=== PATIENT | female | born 1980 | race Caucasian/White ===

== ENCOUNTER 2019-01-01 08:23 | Emergency (ER) | payer BC ==
--- OUTSIDE RECORDS SUMMARY | 2019-01-01 08:30 | XMS REPORT | Continuity of Care Document ---
:1980 External Reference #:[id number] Author Name Karen Pelaez FNP Address [address] [facility] [place] [address] Care Team Providers Name Role Phone Karen Pelaez NP Care Team Information Supply Person Unavailable Karen Pelaez NP Primary Care Physician Unavailable Payers Type Date Identification Numbers Payment Provider Subscriber Policy Number: [id number] Karl Veronica Florentino Group Name: rishabh corrales [address] [address] PayID: [id number] [place] [address] Advance Directives Description No Information Available Problems Date Description Provider Status Onset: 04/15/2015 Generalized anxiety disorder Karen Pelaez FNP Active Onset: 04/08/2014 Female stress incontinence Karen Pelaez FNP Active Onset: 07/25/2013 Headache Kathy De La Cruz FNP Active Onset: 04/15/2015 Tobacco user Karen Pelaez FNP Active Onset: 04/26/2017 Cyst of breast Karen Pelaez FNP Active Note: Triage: 12/08/16 - breast u/s med refill Onset: 12/19/2017 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 Document: 11/06/17 - Consult Ophthalmology Onset: 07/25/2013 Anxiety state Kathy De La Cruz FNP Resolved Resolved: 03/27/2017 Family History Date Family Member(s) Problem(s) Comments Father Diabetes Father due to Suicide () Father paranoid schizophrenia Mother Hypertension Mother Heart Disease + H/O smoking Paternal Grandfather due to [place] () Paternal Grandmother due to Natural Causes () Maternal Grandfather due to complications of () - + smoker AAA surgery Maternal Grandmother Heart Disease Maternal Grandmother due to Heart Disease () - H/O smoking and triple bypass Social History Type Date Description Comments Sex Unknown Lives With Alone Diet Patient follows no dietary restrictions ETOH Use Drinks Alcoholic Beverages Occasionally Tobacco Use Reviewed: 12/18/18 Light tobacco smoker (10 or APPROX 1/2 PPD - fewer cigarettes/day) started smoking 22. Smoking Status Reviewed: 12/18/18 Light tobacco smoker (10 or APPROX 1/2 PPD - fewer cigarettes/day) started smoking 22. 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 Alprazolam 07/25/ Active Tablets 0.25mg 30tabs one by Benigno 2012 mouth three Jenniferle times a day igh, SEED CLEANING MANAGER as needed MDD#3 Reference #: [id number] Propranolol 07/05/ Hx Tablets 40mg 45tabs 1 tab by Clune, HCL 2016 - mouth twice Jenniferle 12/18/ a day x 1 igh, SEED CLEANING MANAGER 2018 week then decrease to 1 tab once daily at hs *in place of 60 mg ER dose* Propranolol 06/04/ Hx Caps ER 60mg 30caps one PO qd - Clune, HCL ER 2016 - 24HR in place of Jenniferle 10/06/ 80 mg dose, igh, SEED CLEANING MANAGER 2016 will decrease to 40 mg at next refill 06/2017 Ferrous 10/05/ Hx Tablets 324(65Fe) 30tabs take one Alysha Muñoz 2013 - DR mg tablet by Meghna 04/15/ mouth once MD 2014 a day Propranolol 09/23/ Hx Caps ER 80mg 30caps One Cap By BLAYNE Pelaez ER 2014 - 24HR Mouth Once Jenniferle A Day igh, SE[employer] 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 2016 Naproxen / Hx Tablets 500mg PO bid Unknown 0000 - *scleritis, left eye 2019 Immunizations CPT Code Status Date Vaccine Lot # [id number] Given 11/06/2016 Pneumococcal Conjugate Vaccine 13 Valent For [id number] Intramuscular Use 33190 Given 11/06/2016 Influenza Virus Vaccine Split Virus Use For [id number] Individual 3Yr Older 36535 Given 09/23/2014 flu vaccination 42057 Given 07/09/2014 Tdap injection Vital Signs Date Vital Result Comment 12/18/2018 7:41am BP Systolic Sitting Left Arm 112 mmHg BP Diastolic Sitting Left Arm 74 mmHg Body Temperature 98.6 F Heart Rate 96 /min Height 61.5 inches 5'1.50" Weight 139.25 lb BMI (Body Mass Index) 25.9 kg/m2 BSA (Body Surface Area) 1.63 m2 [place] body weight in kilograms 49 kg O2 % BldC Oximetry 96 % 06/04/2017 9:35am BP Systolic 118 mmHg BP Diastolic 82 mmHg Height 61 inches 5'1" Weight 133.00 lb BMI (Body Mass Index) 25.1 kg/m2 BSA (Body Surface Area) 1.59 m2 [place] body weight in kilograms 48 kg 11/06/2016 8:41am BP Systolic Sitting Left Arm 142 mmHg BP Diastolic Sitting Left Arm 80 mmHg Body Temperature 99.0 F Heart Rate 92 /min Respiratory Rate 20 /min Height 61 inches 5'1" Weight 138.50 lb BMI (Body Mass Index) 26.2 kg/m2 BSA (Body Surface Area) 1.62 m2 03/07/2016 11:09am BP Systolic Sitting Left Arm 114 mmHg BP Diastolic Sitting Left Arm 72 mmHg Height 61 inches 5'1" Weight 144.00 lb BMI (Body Mass Index) 27.2 kg/m2 BSA (Body Surface Area) 1.64 m2 Last Menstrual Period [id number] 04/15/2015 9:34am BP Systolic Sitting Left Arm 114 mmHg BP Diastolic Sitting Left Arm 76 mmHg Height 61 inches 5'1" Weight 149.00 lb BMI (Body Mass Index) 28.2 kg/m2 BSA (Body Surface Area) 1.67 m2 Last Menstrual Period [id number] 10/15/2014 9:56am BP Systolic 118 mmHg BP Diastolic 72 mmHg Weight 145.00 lb 09/23/2014 1:15pm BP Systolic 114 mmHg BP Diastolic 76 mmHg Heart Rate 80 /min Respiratory Rate 18 /min Weight 147.00 lb 07/09/2014 9:07am BP Systolic 120 mmHg BP Diastolic 80 mmHg Heart Rate 72 /min Height 61.6 inches 5'1.60" Weight 142.00 lb 04/08/2014 9:29am BP Systolic 114 mmHg BP Diastolic 72 mmHg Height 61.6 inches 5'1.60" Weight 136.00 lb 12/30/2013 4:09pm BP Systolic 130 mmHg BP Diastolic 80 mmHg Heart Rate 72 /min Height 62 inches 5'2" Weight 138.00 lb 11/13/2013 9:39am BP Systolic 130 mmHg BP Diastolic 84 mmHg Heart Rate 80 /min Height 62 inches 5'2" Weight 137.00 lb 10/13/2013 10:22am BP Systolic 124 mmHg BP Diastolic 80 mmHg Heart Rate 78 /min Height 62 inches 5'2" Weight 135.00 lb 07/25/2013 9:23am BP Systolic 92 mmHg BP Diastolic 62 mmHg Height 62 inches 5'2" Weight 136.00 lb Results Test Date Facility Test Result H/L Range Note Urine Dipstick 12/18/2018 [facility] Ua Color Yellow Yellow Ua Clarity clear Clear Ua Leuko negative Negative Ua Nitrite negative Negative Ua Urobilinogen 0.2 0.2 - 1.0 E.U./dL Ua Protein negative Negative Ua PH 6.0 Low 6.5-7.5 Ua Blood negative Negative Ua Specific [place] 1.020 1.010-1.030 Ua Ketones negative Negative Ua Bilirubin negative Negative Ua Glucose negative Negative Laboratory test 06/11/2017 [facility] TSH (Thyroid 1.94 N 0.34-5.60 finding [phone] Stimulating mcIU/mL Horm) Free T4 0.80 ng/dL N 0.61-1.12 Rheumatoid Factor <15 IU/mL N <15 1 Comprehensive Metabolic 04/15/2015 [facility] Glucose 85 mg/dL 74-106 2 Panel [address] [place] [address] [phone] BUN 10 mg/dL 7-18 Creatinine 0.7 mg/dL 0.6-1.3 Glom Filtration Rate, Estimate >60 mL/min >60 If >60 mL/min >60 3 BUN/Creat 14.2 ratio Sodium 137 mmol/L 136-145 Potassium 4.4 mmol/L 3.5-5.1 Chloride 104 mmol/L 98-107 Carbon Dioxide 27 mmol/L 21-32 Anion Gap 6 mEq/L Low 8-16 Calcium 8.9 mg/dL 8.5-10.1 Total Protein 7.6 g/dL 6.4-8.2 Albumin 3.9 g/dL 3.4-5.0 Globulin 3.7 g/dL 1.9-4.3 Alb/Glob 1.1 ratio Bilirubin,Total 0.3 mg/dL 0.2-1.0 Sgot/Ast 15 U/L 15-37 SGPT/Alt 22 U/L 12-78 Alkaline Phosphatase 51 U/L 45-117 Laboratory test 04/15/2015 [facility] Thyroid Stim 1.23 uIU/mL 0.36-3.[address] [place] [place] [address] [phone] Free T4 0.96 ng/dL 0.76-1.46 Prolactin 6.2 ng/mL 4 Anti-Thyroid 04/15/2015 [facility] Antithyroglobulin 38.8 High 0.0-0.[address] Antibody IU/[place] [address] [phone] Thyroid Peroxidase Antibodies 16 IU/mL 0-34 6 Iron-Tibc-%Sat 09/23/2014 [facility] Import Serum Iron 20 g/dL Low 50-170 Total Iron Binding Capacity 429 g/dL 250-450 Transferrin %Saturation 5 % Low 12-57 CBC 09/23/2014 N2N/[facility] Import Hematocrit 35.2 % Low 36.0-46.1 Hemoglobin 11.2 gm/dL Low 11.6-15.8 Mean Cell Volume 82.4 fl 80.9-99.0 Mean Corpuscular HGB 26.2 pg 25.9-32.7 Mean Corpuscular HGB Conc 31.8 g/dL 30.8-34.3 Mean Platelet Volume 9.6 fL 8.9-12.4 Platelet Count 374 K/uL High 155-360 Red Blood Count 4.27 M/uL 3.90-5.40 Red Cell Distri Width %CV 14.4 % 11.7-14.4 White Blood Count 6.4 K/uL 3.1-10.7 Laboratory test 09/23/2014 N2N/[facility] Import Thyroid Stim 1.07 uIU/mL 0.36- 3.74 finding Hormone Affirm 04/08/2014 N2N/[facility]D Import Leti Negative 7 Gardnerella Positive Trichomonas Negative Laboratory test finding 04/08/2014 N2N/[facility] Import Cytology Pap See Note 8 1 Test Performed by: [address] [address] 2 has appt 04/26/15 to discuss 3 Note: Persistent reduction for 3 months or more in an eGFR <60 mL/min/1.73 m2 defines CKD. Patients with eGFR values >/=60 mL/min/1.73 m2 may also have CKD if evidence of persistent proteinuria is present. The original MDRD equation for estimated GFR is not valid for patients less than 18 years of age. Additional information may be found at www.kdoqi.org. 4 Non- ..... 2.2-30.3 ng/mL ......... 8.1-347.6 ng/mL Post-Menopausal .. 0.7-31.5 ng/mL 5 Low positive Thyroglobulin antibodies are seen in a portion of the asymptomatic populations. Antithyroglobulin antibodies measured by Elisabet Nazlini Methodology 6 Performed at: - [facility] [address] [id number] Director Of Bands: Radha Ames MD, Phone: [phone] [facility] [address] [place] [address], [address] [place] [address] AFFIRM VAGINOSIS / VAGINITIS REPORT Name: Veronica Florentino : 1980 (Age: 33) Sex: F Location: [facility] Med. Rec. # Date Collected: 04/08/2014 Billing #: [id number] Date Received: 04/08/2014 Physician(s): KAREN KIMBROUGH Source of Specimen: Vaginal Results: Leti species DNA Probe NEGATIVE Gardnerella vaginalis DNA Probe POSITIVE Trichomonas vaginalis DNA Probe NEGATIVE Reported: 04/09/2014 Electronic Signature devang PHILLIPS (ASCP) [facility] [employer] [facility] ICD-9 Codes: 616.10 8 Cytology Laboratory [facility] [address] [place] [address] CYTOLOGY REPORT Name: Veronica Florentino : 1980 (Age: 33) Sex: F Location: [facility] Med. Rec. # Date Collected: 04/08/2014 Billing #: [id number] Date Received: 2013 Physician(s): KAREN KIMBROUGH Source of Specimen: ENDOCERVICAL/ ECTOCERVICAL THIN PREP Clinical Information: Date of Last Menstrual Period: 03/20/14 Menstrual History: Regular Interpretation: NEGATIVE FOR INTRAEPITHELIAL LESION OR MALIGNANCY. Specimen Adequacy: SATISFACTORY FOR EVALUATION. Additional Findings: ENDOCERVICAL/TRANSFORMATION ZONE PRESENT. ABUNDANT ACUTE INFLAMMATION. tfn Electronic Signature LILIANA Kimball (ASCP) Reported: 04/13/2014 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 (routine) w abnormal findings Z12.31 Encntr screen mammogram for malignant neoplasm of breast F41.1 Generalized anxiety disorder Z72.0 Tobacco use D48.5 Neoplasm of uncertain behavior of skin Z13.6 Encounter for screening for cardiovascular disorders Office Visit 06/04/2017 Family Pelaez, F41.1 Generalized 9:30a Medicine Gian Jones SEED CLEANING MANAGER anxiety disorder RD N63 Unspecified lump in breast G43.009 Migraine w/o aura, not intractable, w/o status migrainosus Office Visit 03/07/2016 [facility] Pelaez R10.31 Right lower 10:45a [facility] [place] KAYLAN Jones quadrant pain RD Office Visit 06/21/2015 [facility] Benigno, 626.2 Menstruation 9:30a [facility] [place] KAYLAN Jones Excessive Or RD Frequent V25.12 Encounter For Removal Of Intrauterine Contraceptive Device V25.11 Encounter For Insertion Of Intrauterine Contraceptive Device Office Visit 04/15/2015 [facility] Benigno, 300.02 Anxiety Disorder 9:30a [facility] KAYLAN Jones Generalized RD 783.1 Weight Gain Abnormal 305.1 Tobacco Use Disorder Plan of Treatment Future Appointment(s):12/17/2019 7:30 am - Karen Pelaez FNP at [facility] RD12/18/2018 - Karen Pelaez FNPZ01.411 Encounter for gynecological examination (general) (routine)New Labs:HIV Screen 4TH Gen Reflex , Ordered: 12/18/18Cytopathology Cervix/Vagina, Ordered: 12/18/18Chlmaydia/GC/ Trichomonas PCR, Ordered: 12/18/18Comments:H/O anxiety, but depression screen negativePap done, will call/send letter with resultsClinical breast exam done, no concerns today - mammogram to be scheduled Continue eye exams every 2 yearsContinue dental exams every 6 monthsEncourage increasing daily fruits and vegetables for 5 servings a dayEncourage daily exercise - striving for 20 minutes a day most days a week for heart jrflevE66.31 Encounter for screening mammogram for malignant neoplasm ofNew Xrays:Mammography, Screening Bilateral Mammogram, Ordered: 12/18/18F41.1 Generalized anxiety disorderComments:ORT score 4, UDT collected todaycontinue as needed Alprazolam useZ72.0 Tobacco useComments:No ready to discuss smoking cessationLung Cancer Screening recommendations:The U.S. Preventive Services Task Force recommends yearly lung cancer screening with LDCT for people who?? 1. Have a history of heavy smoking, and 2. Smoke now or have quit within the past 15 years, and 3. Are between 55 and 80years old.Heavy smoking means a smoking history of 30 pack years or more. A pack year is smoking an average of one pack of cigarettes per day for one yearYou do not need this now, but if you continue smoking will be a future aqnxokghkhgqblQ90.5 Neoplasm of uncertain behavior of skinComments:We discussed the ABCD's to consider when looking at skin lesions: Asymmetry, Border, Color and Diameter. As long as the lesion is symmetric, smooth bordered, has even coloration and the diameter is smaller than a pencil eraser - it can be monitored. If any changes occur such as enlarging larger than a pencil eraser, develops irregular borders or different colorations schedule an appointment for re-evaluationdue to changing nature of moles will get referralReferral: Anisha Barakat MD, KafzendrhecA58.6 Encounter for screening for cardiovascular disordersNew Labs:LDL Cholesterol Profile, Ordered: Comprehensive Metabolic Panel, Ordered: 12/18/18CBC W/Automated Diff, Ordered : 12/18/18
[2019-01-01 08:33] VITALS: BP 137/98
--- NOTE | 2019-01-01 09:42 | UC ---
Abdominal Pain Female HPI - HPI Summary HPI Summary: Patient is a 38-year-old female who states since last Sunday she's been having epigastric and right upper quadrant pain. Patient states pain is worse when she drinks coffee. Patient with nausea. Patient vomiting last week but none this week. No fevers or chills. Patient with decreased appetite and a day but states she is able to eat dinner. Patient does not relate paint any food other than coffee. Patient denies any back pain. No dysuria or hematuria. No vaginal discharge, itching or rashes. Patient has not taken any medication for pain. Patient states he missed work last Sunday and new. Patient states she worked half a day on Sunday. Patient states she went to work Sunday stay home Sunday and regular work today but pain was bad so she came here. Patient does report she has significant stress at work. Patient started to cry when she was talking about her job related stress. Patient states she just doesn't like feeling sick and she has anxiety which is is not getting better. Patient states she does take Zoloft for him anxiety and benzodiazepine as needed but has not taken it. Patient denies suicidal or homicidal ideology. Patient with history of similar pain. Patient's medications reviewed this visit. Patient states she is not . - History of Current Complaint Chief Complaint: UCAbdominalPain Stated Complaint: ABD PAIN Time Seen by Provider: 01/01/19 09:40 Hx Obtained From: Patient Hx Last Menstrual Period: 12/27/18 ?: No Onset/Duration: Gradual Onset Timing: Intermittent Episodes Lasting: Severity Initially: Moderate Severity Currently: Moderate Pain Intensity: 9 Allergies/Adverse Reactions: Allergies Allergy/AdvReac Type Severity Reaction Status Date / Time No Known Allergies Allergy Verified 01/01/19 08:34 Home Medications: Home Medications ALPRAZolam [Alprazolam] 0.25 mg PO DAILY 01/01/19 [History Confirmed 01/01/19] SUMAtriptan TAB* [Imitrex TAB*] 50 mg PO DAILY PRN 01/01/19 [History Confirmed 01/01/19] Sertraline* [Zoloft*] 50 mg PO DAILY 01/01/19 [History Confirmed 01/01/19] PMH/Surg Hx/FS Hx/Imm Hx Previously Healthy: Yes Psychological History: Anxiety, Depression - Surgical History Surgical History: None - Family History Known Family History: Positive: Non-Contributory - Social History Occupation: Employed Full-time Alcohol Use: Occasionally Substance Use Type: None Smoking Status (MU): Light Every Day Tobacco Smoker Review of Systems All Other Systems Reviewed And Are Negative: Yes Constitutional: Positive: Negative Skin: Positive: Negative Eyes: Positive: Negative ENT: Positive: Negative Respiratory: Positive: Negative Cardiovascular: Positive: Negative Gastrointestinal: Positive: Abdominal Pain, Nausea. Negative: Diarrhea Motor: Positive: Negative Neurovascular: Positive: Negative Physical Exam - Summary Physical Exam Summary: Vital Signs Reviewed: Yes A+Ox3, mild discomfort Eyes: Conjunctiva Clear, BEST. EOM intact and full ENT: Hearing grossly normal TM x 2 clear, mmoist, uvula midline, no exudate, no erythema Neck: Positive: Supple Respiratory: Positive: No respiratory distress, No accessory muscle use + CTA throughout no w/r Cardiovascular: RRR nl s1, s2 no m/r CBT <2 sec abd + TTP epigastric, RUQ No guarding, no rebound + BS - slightly decreased No CVA Musculoskeletal Exam: WATSON x 4 without difficulty Strength Intact, ROM Intact Neurological: Positive: Alert, + sensation throughout Psychological: Positive: Normal Response To Family Skin: Positive: no rash, no ecchymosis Triage Information Reviewed: Yes Vital Signs: Initial Vital Signs Temp 97.9 F 01/01/19 08:28 Pulse 85 01/01/19 08:28 Resp 17 01/01/19 08:28 BP 137/98 01/01/19 08:28 Pulse Ox 100 01/01/19 08:28 Abd Pain Female Course/Dx - Course Course Of Treatment: Patient presents with 6 days of persistent progressive epigastric right upper quadrant pain. Patient reports nausea and no vomiting. Patient states the symptoms are worse with coughing but not otherwise related to food. Patient states she's been feeling very anxious and has is stressed by the pain. Patient is not taking anything for pain. Patient states she had her while visit approximately 2 weeks ago and everything was fine. Patient does report that she has extensive stressors at work. On exam vital signs are stable. Patient does have significant epigastric right upper quadrant pain. Patient started to cry with exam states she has pain and she just feels overwhelmed that she sick. Patient is not suicidal or homicidal. Discussed with patient our diagnostic options and urgent care limitations. After discussion we'll send patient to emergency department for further evaluation. Patient comfortable and agreement with plan. - Differential Dx/Diagnosis Provider Diagnosis: Abdominal pain, diffuse Discharge - Sign-Out/Discharge Documenting (check all that apply): Patient Departure All imaging exams completed and their final reports reviewed: No Studies - Discharge Plan Condition: Stable Disposition: HOME-RECOMMEND TO ED Patient Education Materials: Acute Abdominal Pain (ED) Referrals: Zoie Pelaez NP [Primary Care Provider] - Additional Instructions: The doctor that evaluated you today thinks that you need additional testing that can be completed the emergency department. It is recommended that you go directly to emergency department for further evaluation. This evaluation may include blood work or imaging. This testing will be directed and decided by the provider that evaluate you at the emergency department. If pain becomes worse, you feel lightheaded, you have uncontrolled vomiting, or you have any other concerns while you are being driven to emergency department as recommended to pullover and contact 911. - Billing Disposition and Condition Condition: STABLE Disposition: Home-Recommend to ED
== END 2019-01-01 10:06 | disposition home health service (06) ==
LOC: UCEAST 08:23
DX: R10.84 Generalized abdominal pain (principal); F32.9 Major depressive disorder, single episode, unspecified; F41.9 Anxiety disorder, unspecified; F17.290 Nicotine dependence, other tobacco product, uncomplicated; R11.0 Nausea
CPT/HCPCS: 81003; 99212; G0463

== ENCOUNTER 2019-01-01 10:27 | Emergency (ER) | payer BC ==
[2019-01-01] MEDS ORDERED: Ondansetron INJ* 2 MG/ML VIAL IV ONE (10:58)
[2019-01-01] MEDS ORDERED: NS 0.9% 1000 ML** 1,000 ML IV ONE (10:58)
[2019-01-01] MEDS ORDERED: Morphine VIAL* 10 MG/ML 1 ML VIAL IV ONE (10:58)
--- NOTE | 2019-01-01 11:00 | ED ---
Abdominal Pain/Female - HPI Summary HPI Summary: This pt is a 38 y/o female presenting to [facility] c/o upper abdominal pain x1 week. Pt reports her abd pain has been constant and it is nonradiating. Currently she rates her pain 10/10 in severity. Additionally notes nausea and loose stools, having more frequency in bowel movements. Denies fever, chills, vomiting, diarrhea, chest pain, SOB. Her abd pain is aggravated after drinking coffee. PMHx: ovarian cysts. Pt notes her pain is different today than her ovarian cyst pain. No hx of ulcers. LMP: ended 1 week ago. - History of Current Complaint Chief Complaint: EDAbdPain Stated Complaint: ABD PAIN Time Seen by Provider: 01/01/19 10:47 Hx Obtained From: Patient Hx Last Menstrual Period: 12/27/18 Onset/Duration: Lasting Weeks - 1, Still Present Timing: Weeks - 1 Severity Currently: Severe Pain Intensity: 10 Pain Scale Used: 0-10 Numeric Location: Other - upper abdominal Radiates: No Aggravating Factor(s): Other: - drinking coffee Alleviating Factor(s): Nothing Associated Signs and Symptoms: Positive: Nausea. Negative: Fever, Chest Pain, Vomiting, Diarrhea Allergies/Adverse Reactions: Allergies Allergy/AdvReac Type Severity Reaction Status Date / Time No Known Allergies Allergy Verified 01/01/19 08:34 PMH/Surg Hx/FS Hx/Imm Hx Endocrine/Hematology History: Denies: Hx Diabetes Cardiovascular History: Denies: Hx Hypertension History: Reports: Other Problems/Disorders - ovarian cysts Infectious Disease History: No Infectious Disease History: Denies: Traveled Outside the [place] in Last 30 Days - Family History Known Family History: Positive: Hypertension, Diabetes - Social History Alcohol Use: Occasionally Substance Use Type: Reports: Marijuana Smoking Status (MU): Light Every Day Tobacco Smoker Review of Systems Negative: Fever Negative: Chest Pain Negative: Shortness Of Breath Gastrointestinal: Other - POS: loose stools Positive: Abdominal Pain, Nausea. Negative: Vomiting, Diarrhea All Other Systems Reviewed And Are Negative: Yes Physical Exam - Summary Physical Exam Summary: VITAL SIGNS: Reviewed. GENERAL: Patient is a well-developed and nourished female who is lying comfortable in the stretcher. Patient is not in any acute respiratory distress. HEAD AND FACE: Normocephalic and atraumatic. EYES: PERRLA, EOMI x 2, No injected conjunctiva. EARS: Hearing grossly intact. Ear canals and tympanic membranes are WNL. MOUTH: Oropharynx within normal limits. NECK: Supple, trachea is midline, no adenopathy, no JVD. CHEST: Symmetric, no tenderness at palpation LUNGS: Clear to auscultation bilaterally. No wheezing or crackles. CVS: RRR, S1 and S2 present, no murmurs or gallops appreciated. ABDOMEN: Soft, RUQ tenderness. A little bit of guarding. No signs of distention. Positive bowel sounds. No rebound and no masses palpated. No abdominal bruit or pulsations. EXTREMITIES: FROM in all major joints, no edema, no cyanosis or clubbing. NEURO: Alert and oriented x 3. No acute neurological deficits. Speech is normal. SKIN: Dry and warm Triage Information Reviewed: Yes Vital Signs On Initial Exam: Initial Vitals Temp Pulse Resp BP Pulse Ox 98.1 F 81 18 154/86 98 01/01/19 10:40 01/01/19 10:40 01/01/19 10:40 01/01/19 10:40 01/01/19 10:40 Vital Signs Reviewed: Yes Diagnostics - Vital Signs Vital Signs Temp Pulse Resp BP Pulse Ox 01/01/19 10:40 98.1 F 81 18 154/86 98 - Laboratory Result Diagrams: 01/01/19 11:09 01/01/19 11:09 Lab Statement: Any lab studies that have been ordered have been reviewed, and results considered in the medical decision making process. - CT Abdomen/Pelvis CT CT Interpretation Completed By: Radiologist Summary of CT Findings: IMPRESSION: IUD in place. No abnormal masses or fluid collections are noted. Normal appendix is visualized. There are right ovarian cysts noted. Dr. Salazar has reviewed this report. - Ultrasound No standard instances Ultrasound Interpretation Completed By: Radiologist Summary of Ultrasound Findings: Gallbladder US IMPRESSION: Negatie right upper quadrant ultrasound. Dr. Salazar has reviewed this report. Re-Evaluation - Re-Evaluation First Eval Re-Evaluation Time: 13:27 Change: Improved Comment: Pt is feeling better. I reviewed the lab and CT results with the pt. She will be discharged home. Abdominal Pain Fem Course/Dx - Course Course Of Treatment: Blood work without any significant abnormality. In the ED course the patient was given IV fluids, Zofran for nausea and morphine for pain. Right upper quadrant ultrasound impression: Negative exam. The patient continued to have abdominal pain therefore I ordered an abdominal pelvic CT. Impression: IUD in place, no abnormal masses or fluid collections are noted. Normal appendix is visualized. There are right ovarian cysts noted. I offered the patient a pelvic exam but the patient declined. After medications the patient reports that she is feeling better. I will give her a prescription for Prilosec and she is to follow up with the primary care physician. Patient is alert and oriented 3. I discussed all the findings and test results with the patient. Patient was instructed to return to the emergency room immediately if any of the symptoms return or worsens. Plan of care was discussed with the patient and understands and agrees. All questions were answered at patient satisfaction. There were no further complaints or concerns. Lung exam before discharge: CTA B/L. Good air exchange. No wheezing or crackles heard. CVS: S1 and S2 present. No murmurs appreciated. Patient is alert and oriented x 3. Patient is hemodynamically stable. Patient will be discharged home with follow up PCP in the next 2-3 days. - Diagnoses Differential Diagnosis: Positive: Appendicitis, Constipation, Diverticulitis, Gall Bladder Disease, Renal Colic, Urinary Tract Infection Provider Diagnoses: Upper abdominal pain Discharge - Sign-Out/Discharge Documenting (check all that apply): Patient Departure - Discharge home Patient Received Moderate/Deep Sedation with Procedure: No - Discharge Plan Condition: Stable Disposition: HOME Prescriptions: Omeprazole CAP (NF) [Prilosec CAP* 20 MG] 20 mg PO DAILY #14 cap. Patient Education Materials: Abdominal Pain (ED) Referrals: Zoie Pelaez NP [Primary Care Provider] - Additional Instructions: FOLLOW UP WITH YOUR PRIMARY CARE PROVIDER WITHIN ONE WEEK FOR HIGH BLOOD PRESSURE NOTED TODAY. RETURN TO THE ED FOR ANY NEW OR WORSENING SYMPTOMS. - Billing Disposition and Condition Condition: STABLE Disposition: Home - Attestation Statements Document Initiated by Eduardo: Yes Documenting Scribe: Lotus Mariee Provider For Whom Eduardo is Documenting (Include Credential): Miguel Salazar MD Scribe Attestation: Lotus Lemus, scribed for Miguel Salazar MD on 01/01/19 at 1522. Scribe Documentation Reviewed: Yes Provider Attestation: The documentation as recorded by the Devon chandlera Mariee accurately reflects the service I personally performed and the decisions made by me, Miguel Salazar MD Status of Scribe Document: Viewed
[2019-01-01 11:19] LABS: ABS Basophils 0 10^3/ul (0-0.2); ABS Eosinophils 0 10^3/ul (0-0.6); ABS Lymphocytes 1.4 10^3/ul (1.0-4.8); ABS Monocytes 0.3 10^3/ul (0-0.8); ABS Neutrophils 3.2 10^3/ul (1.5-7.7); ABS Nucleated RBC 0 10^3/ul; Eosinophil % 0.9 %; Hematocrit 42 % (35-47); Hemoglobin 14.2 g/dl (12.0-16.0); Lymphocyte % 27.4 %; Mean Corpuscular HGB Conc 34 g/dl (31-36); Mean Corpuscular Hemoglobin 30 pg (27-31); Mean Corpuscular Volume 89 fL (80-97); Mean Platelet Volume 6.7 fL (7.4-10.4); Nucleated Red Blood Cells % 0.1; Platelet Count 256 10^3/ul (150-450); Red Blood Count 4.72 10^6/ul (4.00-5.40); Red Cell Distribution Width 13 % (10.5-15)
[2019-01-01 11:41] LABS: HCG Pregnancy < 0.60 mIU/mL
[2019-01-01 11:48] LABS: ALT 15 U/L (7-52); AST 16 U/L (13-39); Albumin 4.3 g/dL (3.2-5.2); Albumin/Globulin Ratio 1.8 (1-3); Alkaline Phosphatase 41 U/L (34-104); Amylase 31 U/L (29-103); Anion Gap 6 mmol/L (2-11); BUN/Creatinine Ratio 19.7 (8-20); Blood Urea Nitrogen 12 mg/dL (6-24); C Reactive Protein < 1.00 mg/L (<8.01); CO2 Carbon Dioxide 27 mmol/L (22-32); Calcium 9.4 mg/dL (8.6-10.3); Chloride 106 mmol/L (101-111); EGFR African American 131.4 (>60); EGFR Non-African American 108.6 (>60); Globulin 2.4 g/dL (2-4); Glucose 90 mg/dL (70-100); Sodium 139 mmol/L (135-145); Total Protein 6.7 g/dL (6.4-8.9)
[2019-01-01] MEDS ORDERED: Iohexol 300* (CONTRAST) 10 ML SDV IV ONE (12:12)
[2019-01-01 12:50] LABS: Urine Appearance Clear; Urine Bacteria 1+ (Absent); Urine Bilirubin Negative (Negative); Urine Blood 1+ (Negative); Urine Color Colorless; Urine Glucose Negative (Negative); Urine Ketones Negative (Negative); Urine Nitrite Negative (Negative); Urine Protein Negative (Negative); Urine Red Blood Cell Trace(0-2/hpf) (Absent); Urine Specific Gravity 1.005 (1.010-1.030); Urine Squamous Epithelial Cell Present (Absent); Urine Urobilinogen Negative (Negative); Urine White Blood Cell Absent (Absent)
[2019-01-01 14:11] VITALS: BP 132/77
== END 2019-01-01 13:58 | disposition home or self-care (01) ==
LOC: ED 10:27
DX: R10.10 Upper abdominal pain, unspecified (principal); R11.0 Nausea; F17.210 Nicotine dependence, cigarettes, uncomplicated
CPT/HCPCS: 36415; 74177; 76705; 80053; 81003; 81015; 82150; 83605; 83690; 84702; 85025; 86140; 87086; 96361; 96374; 96375; 99282; J2270; J2405; Q9967